=== PATIENT | male | born 1990 | race Caucasian/White ===

== ENCOUNTER 2019-04-06 06:13 | Day surgery (SDC) | payer BC, SELFPAY ==
[2019-04-06 06:26] VITALS: BP 156/109; PULSE 75; RESP 18; TEMP 37; O2SAT 98
[2019-04-06] MEDS: Lactated Ringers 1,000 ML 80 ML IV (06:43)
--- NOTE | 2019-04-06 07:23 | W.PM.DSUDISC ---
Discharge Plan Disposition Patient Disposition: HOME Condition: Stable Discharge Details Reason For Visit: vasectomy Attending Provider: Darryl Crow Primary Care Provider: Jagdeep Pleitez Home Meds and New Rx's Prescriptions: New ketorolac 10 mg tablet 10 mg PO Q6H MDD 4 PRN (Reason: pain) 2 Days Qty: 8 RF: 0 No Action citalopram 20 mg tablet 20 mg PO DAILY Qty: 90 RF: 3 albuterol sulfate [Proventil HFA] 90 mcg/actuation HFA aerosol inhaler 2 puff IH Q6H PRNRF: 0 ibuprofen 800 mg Tablet 800 mg PO BID-TID PRNRF: 0 Discharge Instructions Additional Instructions: No lifting/straining for 48 hours then may resume full activity pt to bring semen sample to office in 8 to 12 weeks (must use other form of control until then) script for Toradol sent to pharmacy - pt should not take both Toradol and Ibuprofen at same time Activity:: see above Shower/Bathe:: 24 hours Diet:: As Tolerated DS: Diagnosis Discharge Diagnosis (1) Encounter for vasectomy: Status: Acute
[2019-04-06] MEDS: Lidocaine 1% Multi-Dose 50 ML VIAL (08:18)
[2019-04-06 08:43] VITALS: BP 120/89; PULSE 77; RESP 16; TEMP 36.4; O2SAT 96
--- NOTE | 2019-04-07 07:41 | ROE_ITS ---
REPORT OF OPERATIVE PROCEDURE DATE OF PROCEDURE April 06, 2019 PREOPERATIVE DIAGNOSIS Elective sterilization. POSTOPERATIVE DIAGNOSIS Elective sterilization. PROCEDURE Vasectomy. SURGEON Darryl Crow M.D. ANESTHESIA MAC with local. COMPLICATIONS None. ESTIMATED BLOOD LOSS Minimal. HISTORY This is a 29-year-old gentleman who has three children. The youngest of which was born just within e past month. He presents for vasectomy. PROCEDURE DESCRIPTION The patient was brought to the Operating Room on 04/06/2019. He was given Monitored Anesthesia Care an d placed in the supine position. His genitalia was prepped and draped. I began on the patient's left side and isolated the vas deferens up against the scrotal skin. The ski n was infiltrated with 1% Xylocaine. The skin was then opened using a scalpel-free technique. The vas deferens was grasped with ring forceps and dissected free from its surrounding tissue. A 2-cm section of vas was excised; each cut end of the vas was cauterized. The more proximal end of the vas was buried back beneath the adventitia with a simple interrupted #4-0 Chromic suture. The same procedure was performed on the patient's right side. Neither of the vas specimens were sent to Pathology, that is the current recommendation of the [employer]. Once hemostasis had been achieved, the skin was closed with Dermabond. The patient tolerated the procedure well with no complications.
== END 2019-04-06 09:10 | disposition home or self-care (01) ==
PROVIDERS: PCP Family Medicine; Visit Provider Urology
PROC: (CPT 55250; principal; 2019-04-06 07:30)
DX: Z30.2 Encounter for sterilization (principal)
CPT/HCPCS: 55250; J1100; J1200; J1885; J2250; J2405; J3010

== ENCOUNTER 2019-10-27 09:23 | Outpatient (CLI) | payer BC, SELFPAY ==
[2019-10-27 12:38] LABS: Calculated LDL 121 mg/dL; Cholesterol 195 mg/dL (<200); Glucose 87 mg/dL (74-106); HDL Cholesterol 33 mg/dL (40-60); Triglyceride 208 mg/dL (<150)
== END 2019-10-27 09:43 ==
PROVIDERS: PCP Family Medicine; Visit Provider Family Medicine
DX: E78.5 Hyperlipidemia, unspecified (principal); Z13.1 Encounter for screening for diabetes mellitus
CPT/HCPCS: 36415; 80061; 82947

== ENCOUNTER 2020-10-30 11:57 | Outpatient (CLI) | payer BC, SELFPAY ==
[2020-10-30 13:32] LABS: CREATININE 1.23 mg/dL (0.70-1.30); Calculated LDL 124 mg/dL (<100); Cholesterol 206 mg/dL (<200); HDL Cholesterol 35 mg/dL (40-60); Potassium 4.1 mmol/L (3.5-5.1); Triglyceride 236 mg/dL (<150)
== END 2020-10-30 12:17 ==
PROVIDERS: PCP Family Medicine; Visit Provider Family Medicine
DX: E78.5 Hyperlipidemia, unspecified (principal); I10 Essential (primary) hypertension
CPT/HCPCS: 36415; 80061; 82565; 84132

== ENCOUNTER 2022-09-01 03:37 | Outpatient (CLI) | payer BC, SELFPAY ==
[2022-09-01 08:01] LABS: CREATININE 1.3 mg/dL (0.70-1.30); Calculated LDL 126 mg/dL (<100); Cholesterol 190 mg/dL (<200); Estimated GFR 74.39 (mL/min/1.73m2); HDL Cholesterol 36 mg/dL (40-60); Potassium 3.8 mmol/L (3.5-5.1); Triglyceride 142 mg/dL (<150)
== END 2022-09-01 03:38 | disposition home or self-care (01) ==
LOC: LBO 03:37
PROVIDERS: PCP Family Medicine; Visit Provider Family Medicine
DX: I10 Essential (primary) hypertension (principal); E78.5 Hyperlipidemia, unspecified
CPT/HCPCS: 36415; 80061; 82565; 84132

== ENCOUNTER 2023-11-11 08:34 | Outpatient (CLI) | payer BC, SELFPAY ==
[2023-11-11 12:41] LABS: Anion Gap 7.6 mmol/L (3-11); BUN 22 mg/dL (7-18); CO2 29.4 mmol/L (21.0-32.0); CREATININE 1.2 mg/dL (0.70-1.30); Calcium 9.3 mg/dL (8.5-10.1); Calculated LDL 142 mg/dL (<100); Chloride 103 mmol/L (98-107); Cholesterol 214 mg/dL (<200); Estimated GFR 81.38 (mL/min/1.73m2); Glucose 103 mg/dL (74-106); HDL Cholesterol 44 mg/dL (40-60); Potassium 4.1 mmol/L (3.5-5.1); Sodium 140 mmol/L (136-145); Triglyceride 142 mg/dL (<150)
== END 2023-11-11 08:35 | disposition home or self-care (01) ==
LOC: LOS 08:35
PROVIDERS: PCP Family Medicine; Visit Provider Family Medicine
DX: E87.1 Hypo-osmolality and hyponatremia (principal)
CPT/HCPCS: 36415; 80048; 80061

== ENCOUNTER 2024-11-16 08:53 | Outpatient (CLI) | payer BC, SELFPAY ==
[2024-11-16 13:28] LABS: CREATININE 1.2 mg/dL (0.70-1.30); Calculated LDL 121 mg/dL (<100); Cholesterol 205 mg/dL (<200); Estimated GFR 80.88 (mL/min/1.73m2); Glucose 99 mg/dL (74-106); HDL Cholesterol 35 mg/dL (40-60); Potassium 4.1 mmol/L (3.5-5.1); Triglyceride 247 mg/dL (<150)
[2024-11-19 15:32] LABS: Lipoprotein (a) <7 nmol/L (<75)
== END 2024-11-16 08:54 | disposition home or self-care (01) ==
LOC: LOS 08:53
PROVIDERS: PCP Family Medicine; Visit Provider Family Medicine
DX: I10 Essential (primary) hypertension (principal); E78.5 Hyperlipidemia, unspecified; R73.9 Hyperglycemia, unspecified; J34.2 Deviated nasal septum
CPT/HCPCS: 36415; 80061; 82947; 83695; 82565; 84132